=== PATIENT | female | born 1970 | race Caucasian/White ===

== ENCOUNTER 2022-03-04 13:17 | Emergency (ER) | payer OTHER ==
[~2022-03-04] VITALS: Ht 157.5 cm; Wt 70.3 kg
[2022-03-04 13:19] VITALS: BP 154/74
--- NOTE | 2022-03-04 13:30 | NUR ---
PT AMBULATED TO BED 03.
--- NOTE | 2022-03-04 13:37 | NUR ---
51 Y/O FEMALE BIB SELF C/O R MIDDLE FINGER PAIN S/P INJURY X 2 DAYS. PAIN RATED 8/10. PT STATES PAIN IS INCREASED WITH MOVEMENT. PT DENIES TAKING ANY MEDICATION PRIOR TO ARRIVAL TO ED. PMH: DM, HTN MEDS: DENIES NKA
--- NOTE | 2022-03-04 14:26 | NUR ---
XR AT PT BEDSIDE
[2022-03-04] MEDS ORDERED: NAPR-1704 PO (14:59)
--- NOTE | 2022-03-04 15:04 | NUR ---
SPLINTED 3RD FINGER ON THE RIGHT HAND WITH A SHORT FINGER SPLINT KEEPING FINGER STRAIGHT. WRAPPED WITH 2 INCH AMANDA WRAP. + CMS BEFORE/AFTER. ER PA NOTIFIED. PT DID NOT COMPLAIN OF AN DISCOMFORT.
[2022-03-04 15:21] VITALS: BP 135/68
== END 2022-03-04 15:22 | disposition home or self-care (01) ==
LOC: MED 13:17
DX: S62.632A Displaced fracture of distal phalanx of right middle finger, initial encounter for closed fracture (principal); E11.9 Type 2 diabetes mellitus without complications; I10 Essential (primary) hypertension; Z79.899 Other long term (current) drug therapy; X58.XXXA Exposure to other specified factors, initial encounter; Y93.89 Activity, other specified; Y92.59 Other trade areas as the place of occurrence of the external cause; Y99.8 Other external cause status
CPT/HCPCS: 29130; 73140; 99283; Q0092